=== PATIENT | male | born 1970 | race Two or more races ===

== ENCOUNTER 2018-09-29 17:53 | Emergency (ER) | payer OTHER ==
[~2018-09-29] VITALS: Ht 167.6 cm; Wt 82.6 kg
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
--- NOTE | 2018-09-29 19:24 | NUR ---
Patient discharged to home in stable conditon. Written and verbal after care instructions given. Patient verbalizes understanding of instructions.
== END 2018-09-29 19:25 | disposition home or self-care (01) ==
LOC: ER 17:56
DX: S20.212A Contusion of left front wall of thorax, initial encounter (principal); S13.4XXA Sprain of ligaments of cervical spine, initial encounter; V49.49XA Driver injured in collision with other motor vehicles in traffic accident, initial encounter; Y93.89 Activity, other specified; Y92.89 Other specified places as the place of occurrence of the external cause; Y99.8 Other external cause status
CPT/HCPCS: 70450; 71101; A4663

== ENCOUNTER 2020-11-30 10:57 | Emergency (ER) | payer BC, OTHER ==
[~2020-11-30] VITALS: Ht 170.2 cm; Wt 77.1 kg
--- NOTE | 2020-11-30 11:20 | NUR ---
at bedside for assessment
--- NOTE | 2020-11-30 11:22 | NUR ---
20/20 vision for both the left and right eye
[2020-11-30] MEDS ORDERED: ERYT3.5O24 RIGHTEYE (11:26)
--- NOTE | 2020-11-30 11:31 | NUR ---
Patient discharged to home in stable condition. No signs of acute distress noted. Written and verbal after care instructions given. Took sll belongings, RX faxed to pharmacy. Patient verbalizes understanding of instructions. Stressed follow up or return to ER for worsening s/s.
[2020-11-30 11:34] VITALS: BP 113/72
== END 2020-11-30 11:34 | disposition home or self-care (01) ==
LOC: ER 10:57
DX: H00.022 Hordeolum internum right lower eyelid (principal)
CPT/HCPCS: A4663